=== PATIENT | male | born 1975 | race Caucasian/White ===

== ENCOUNTER 2018-06-04 18:11 | Inpatient (IN) ==
[2018-06-04 19:39] LABS: Baso % (Auto) 0.4 % (0.0-2.0); Eos # (Auto) 0.1 th/mm3 (0.0-0.4); Eos % (Auto) 1.1 % (0.0-4.0); Hematocrit 44.4 % (39.0-51.0); Hemoglobin 15.2 gm/dL (13.0-17.0); Lymph # (Auto) 0.1 th/mm3 (1.0-4.8); Lymph % (Auto) 1.1 % (9.0-44.0); Mean Corpuscular HGB Conc 34.3 % (32.0-36.0); Mean Corpuscular Hemoglobin 32.7 pg (27.0-34.0); Mean Corpuscular Volume 95.3 fL (80.0-100.0); Mean Platelet Volume 8.4 fL (7.0-11.0); Mono # (Auto) 0.6 th/mm3 (0.0-0.9); Mono % (Auto) 7.8 % (0.0-8.0); Neut # (Auto) 6.5 th/mm3 (1.8-7.7); Neut % (Auto) 89.6 % (16.0-70.0); Platelet Count 153 th/mm3 (150-450); Red Blood Count 4.65 mil/mm3 (4.50-5.90); Red Cell Distribution Width 13.3 % (11.6-17.2); White Blood Count 7.3 th/mm3 (4.0-11.0)
--- NOTE | 2018-06-04 19:42 | CT ---
EXAM DATE: 06/04/2018 7:30 PM EDT AGE/SEX: 43 years / Male INDICATIONS: Trauma, attempted hanging today. CLINICAL DATA: This is the patient's initial encounter. Patient reports that signs and symptoms have been present for 1 day and indicates a pain score of 7/10. MEDICAL/SURGICAL HISTORY: Multiple sclerosis. . brain biopsy RADIATION DOSE: 38.73 CTDI (mGy) COMPARISON: No prior exams available for comparison. TECHNIQUE: CT of the head without contrast. Using automated exposure control and adjustment of the mA and/or kV according to patient size, radiation dose was kept as low as reasonably achievable to ob tain optimal diagnostic quality images. DICOM format image data is available electronically for revi ew and comparison. FINDINGS: There is no evidence for intracranial hemorrhage, mass effect, mass lesions, edema, or extra-axial fl uid collections. The visualized bony structures appear intact. The ventricles are normal size for t he patient's age. There are no signs of acute infarction for technique. There is evidence for prior jerod hole in the right posterior parietal region with an area of almost 2 cm peritrigonal lucency pr obably old. CONCLUSION: Chronic changes right peritrigonal area and no acute hemorrhage. Electronically signed by: Jesu Stack MD 06/04/2018 7:41 PM EDT
--- NOTE | 2018-06-04 19:46 | CT ---
EXAM DATE: 06/04/2018 7:38 PM EDT AGE/SEX: 43 years / Male INDICATIONS: Trauma, attempted hanging today. CLINICAL DATA: This is the patient's initial encounter. Patient reports that signs and symptoms have been present for 1 day and indicates a pain score of 7/10. MEDICAL/SURGICAL HISTORY: Multiple sclerosis. None. RADIATION DOSE: 20.99 CTDI (mGy) COMPARISON: No prior exams available for comparison. TECHNIQUE: Contiguous axial images were obtained using helical multirow detector technique. The vol umetric data was post-processed with multiplanar reconstruction in oblique axial, sagittal, and coron al planes. Using automated exposure control and adjustment of the mA and/or kV according to patient s ize, radiation dose was kept as low as reasonably achievable to obtain optimal diagnostic quality neetu ges. DICOM format image data is available electronically for review and comparison. FINDINGS: No significant subluxation or soft tissue swelling is seen. No definite fracture is identified for t echnique. C2-C3: No appreciable compromise to the thecal sac, exiting nerve roots are seen. The neural foramin a are patent bilaterally. No appreciable thecal sac stenosis is seen. C3-C4: No appreciable compromise to the thecal sac, exiting nerve roots are seen. The neural foramin a are patent bilaterally. No appreciable thecal sac stenosis is seen. C4-C5: No appreciable compromise to the thecal sac, exiting nerve roots are seen. The neural foramin a are patent bilaterally. No appreciable thecal sac stenosis is seen. C5-C6: Moderate degenerative changes are present in the disc space and facets. There is slight neura l foramina compromise bilaterally due to bulging disc and hypertrophic changes. Slight osteophyte fo rmation bulging disc protrude posteriorly partially into the bilateral lateral recess without any sig nificant lateral recess stenosis. Slight bulging disc and hypertrophic changes are seen with indenta tion on the thecal sac and no significant compromise to the thecal sac . C6-C7: No appreciable compromise to the thecal sac, exiting nerve roots are seen. The neural forami na are patent bilaterally. No appreciable thecal sac stenosis is seen. C7-T1: No appreciable compromise to the thecal sac, exiting nerve roots are seen. The neural foramin a are patent bilaterally. No appreciable thecal sac stenosis is seen. CONCLUSION: Degenerative spondylosis and neural foraminal compromise bilateral C5-6. Electronically signed by: Jesu Stack MD 06/04/2018 7:44 PM EDT
[2018-06-04 19:49] LABS: Albumin 3.6 g/dL (3.4-5.0); Anion Gap 6 meq/L (5-15); Aspartate Aminotransferase 19 U/L (15-37); Blood Urea Nitrogen 8 mg/dL (7-18); Calcium 8.5 mg/dL (8.5-10.1); Carbon Dioxide 26.2 meq/L (21.0-32.0); Chloride 113 meq/L (98-107); Glomerular Filtration Rate 76 mL/min (>89); Glucose,Random 102 mg/dL (74-106); Potassium 3.8 meq/L (3.5-5.1); Sodium 145 meq/L (136-145)
[2018-06-04 19:50] LABS: Alanine Aminotransferase 28 U/L (12-78)
[2018-06-04 20:00] LABS: Alkaline Phosphatase 56 U/L (45-117); Thyroid Stimulating Hormone 0.739 uIU/mL (0.358-3.740)
--- NOTE | 2018-06-04 20:12 | CT ---
EXAM DATE: 06/04/2018 8:06 PM EDT AGE/SEX: 43 years / Male INDICATIONS: Trauma, attempted hanging today. CLINICAL DATA: This is the patient's initial encounter. Patient reports that signs and symptoms have been present for 1 day and indicates a pain score of 7/10. MEDICAL/SURGICAL HISTORY: Multiple sclerosis. None. RADIATION DOSE: 35.86 CTDI (mGy) ; Combined studies COMPARISON: No prior exams available for comparison. TECHNIQUE: Contiguous axial images were acquired using a multirow detector CT scanner without contra st. Multiplanar reconstruction in the sagittal and coronal planes was performed. Using automated exp osure control and adjustment of the mA and/or kV according to patient size, radiation dose was kept a s low as reasonably achievable to obtain optimal diagnostic quality images. DICOM format image data is available electronically for review and comparison. FINDINGS: No significant compression deformities are seen. There is a hemangioma is the lumbar vertebrae with m ultiple Schmorl nodes formation. T1-T2: No appreciable compromise to the thecal sac, spinal cord, or the exiting nerve roots are seen . The neural foramina are grossly patent bilaterally. T2-T3: No appreciable compromise to the thecal sac, spinal cord, or the exiting nerve roots are seen . The neural foramina are grossly patent bilaterally. T3-T4: No appreciable compromise to the thecal sac, spinal cord, or the exiting nerve roots are seen . The neural foramina are grossly patent bilaterally. T4-T5: No appreciable compromise to the thecal sac, spinal cord, or the exiting nerve roots are seen . The neural foramina are grossly patent bilaterally. T5-T6: No appreciable compromise to the thecal sac, spinal cord, or the exiting nerve roots are seen . The neural foramina are grossly patent bilaterally. T6-T7: No appreciable compromise to the thecal sac, spinal cord, or the exiting nerve roots are seen . The neural foramina are grossly patent bilaterally. T7-T8: No appreciable compromise to the thecal sac, spinal cord, or the exiting nerve roots are seen . The neural foramina are grossly patent bilaterally. T8-T9: No appreciable compromise to the thecal sac, spinal cord, or the exiting nerve roots are seen . The neural foramina are grossly patent bilaterally. T9-T10: No appreciable compromise to the thecal sac, spinal cord, or the exiting nerve roots are see n. The neural foramina are grossly patent bilaterally. T10-T11: No appreciable compromise to the thecal sac, spinal cord, or the exiting nerve roots are se en. The neural foramina are grossly patent bilaterally. T11-T12: No appreciable compromise to the thecal sac, spinal cord, or the exiting nerve roots are se en. The neural foramina are grossly patent bilaterally. T12-L1: No appreciable compromise to the thecal sac, spinal cord, or the exiting nerve roots are see n. The neural foramina are grossly patent bilaterally. CONCLUSION: Hemangioma of T7 vertebrae multiple Schmorl nodes formation and no acute fracture. Electronically signed by: Jesu Stack MD 06/04/2018 8:11 PM EDT
--- NOTE | 2018-06-04 20:16 | CT ---
EXAM DATE: 06/04/2018 8:07 PM EDT AGE/SEX: 43 years / Male INDICATIONS: Trauma, attempted hanging today. CLINICAL DATA: This is the patient's initial encounter. Patient reports that signs and symptoms have been present for 1 day and indicates a pain score of 7/10. MEDICAL/SURGICAL HISTORY: Multiple sclerosis. None. RADIATION DOSE: 35.86 CTDI (mGy) ; Combined studies COMPARISON: No prior exams available for comparison. TECHNIQUE: Contiguous axial images were acquired with a multirow detector CT scanner without contras t. Multiplanar reconstructions in the sagittal and coronal plane were also performed. Using automate d exposure control and adjustment of the mA and/or kV according to patient size, radiation dose was k ept as low as reasonably achievable to obtain optimal diagnostic quality images. DICOM format image data is available electronically for review and comparison. FINDINGS: No significant compression deformities, spondylolysis, or spondylolesthesis is seen. Multiple Schmorl nodes formation is seen. L1-L2: No appreciable compromise to the thecal sac, or the exiting nerve roots is seen. The neural foramina and lateral recesses are patent bilaterally. L2-L3: No appreciable compromise to the thecal sac, or the exiting nerve roots is seen. The neural foramina and lateral recesses are patent bilaterally. L3-L4: No appreciable compromise to the thecal sac, or the exiting nerve roots is seen. The neural foramina and lateral recesses are patent bilaterally. L4-L5: Slight bulging disc and hypertrophic changes are seen with indentation on the thecal sac and no significant compromise to the thecal sac or the exiting nerve roots. L5-S1: Slight degenerative changes are present in the disc space and facets. There is slight neura l foramina compromise bilaterally due to bulging disc and hypertrophic changes. Slight bulging disc and hypertrophic changes are seen with indentation on the thecal sac and no significant compromise to the thecal sac. CONCLUSION: Slight neural foraminal compromise bilateral L5-S1. Electronically signed by: Jesu Stack MD 06/04/2018 8:14 PM EDT
--- NOTE | 2018-06-04 20:30 | CT ---
EXAM DATE: 06/04/2018 8:25 PM EDT AGE/SEX: 43 years / Male INDICATIONS: Trauma, attempted hanging today. CLINICAL DATA: This is the patient's initial encounter. Patient reports that signs and symptoms have been present for 1 day and indicates a pain score of 7/10. MEDICAL/SURGICAL HISTORY: Multiple sclerosis. . brain biopsy RADIATION DOSE: 28.84 CTDI (mGy) ; Combined studies COMPARISON: No prior exams available for comparison. TECHNIQUE: Volumetric scanning was performed using a multi-row detector CT scanner during bolus infu kenji of 74 ml Omnipaque 350 (iohexol) nonionic water-soluble contrast as a cumulative dose for multi ple exams. The data was post processed with a variety of visualization algorithms including full vo lume maximum intensity projection, multi-planar sliding thin slab reformation, curved planar reformat ion, and surface rendering techniques. Using automated exposure control and adjustment of the mA and /or kV according to patient size, radiation dose was kept as low as reasonably achievable to obtain o ptimal diagnostic quality images. DICOM format image data is available electronically for review and comparison. FINDINGS: There is excellent visualization of the major intracranial arteries out to the second-order branch ve ssels. There is no evidence for aneurysm, vessel truncation or stenosis, and no evidence for vascula r malformation. CONCLUSION: 1. Negative CTA Head. Electronically signed by: Jesu Stack MD 06/04/2018 8:28 PM EDT
--- NOTE | 2018-06-04 20:32 | CT ---
EXAM DATE: 06/04/2018 8:26 PM EDT AGE/SEX: 43 years / Male INDICATIONS: Trauma, attempted hanging today. CLINICAL DATA: This is the patient's initial encounter. Patient reports that signs and symptoms have been present for 1 day and indicates a pain score of 7/10. MEDICAL/SURGICAL HISTORY: Multiple sclerosis. . brain biopsy RADIATION DOSE: 35.86 CTDI (mGy) COMPARISON: No prior exams available for comparison. TECHNIQUE: Volumetric scanning was performed using a multirow detector CT scanner during bolus infus ion of 74 ml Omnipaque 350 (iohexol) nonionic water-soluble contrast as a cumulative dose for multip le exams. The data was postprocessed with a variety of visualization algorithms including full-volu me maximum intensity projection, multiplanar sliding thin-slab reformation, curved-planar reformation , and surface-rendering techniques. Using automated exposure control and adjustment of the mA and/or kV according to patient size, radiation dose was kept as low as reasonably achievable to obtain opti mal diagnostic quality images. DICOM format image data is available electronically for review and co mparison. Percent stenosis is calculated using the diameter of the stenotic region over the diameter of the nor mal distal internal carotid artery. FINDINGS: The takeoff of the major vessels from the arch appear intact. The vertebral basilar system appear int act. The internal carotid artery bifurcation is completely normal. CONCLUSION: 1. Unremarkable study. Electronically signed by: Jesu Stack MD 06/04/2018 8:30 PM EDT
--- NOTE | 2018-06-04 20:53 | ED ---
HPI General Chief Complaint: Psychiatric Symptoms Stated Complaint: Dwayne Chen Time Seen by Provider: 06/04/18 18:29 Source: patient Limitations: no limitations History of Present Illness HPI narrative: Patient is a 43-year-old male, past medical history significant for depression, who presents with complaint of suicide attempt. He arrived under Akhtar act. He had gotten into an argument earlier today and then proceeded to try and hang himself. He did lose consciousness. He states that he was only hanging for less than 2 minutes before his girlfriend got him down. He denies numbness or weakness. Denies change in voice or difficulty swallowing. complaint: injury Onset (ago): minute(s) Loss of Consciousness: yes Location: neck Severity: moderate Context: other Associated symptoms: denies other symptoms Related Data Allergies Allergy/AdvReac Type Severity Reaction Status Date / Time No Known Allergies Allergy Severe Uncoded 06/02/09 00:39 Review of Systems ROS: all other systems reviewed are negative [facility] Medical History Medical History Depression (Acute) Multiple sclerosis (Acute) Surgical History Surgical History H/O hand surgery (Acute) History of arthroscopic procedure on shoulder (Acute) Social History Social History Substance History: Active Abuse Smoking Status: Heavy tobacco smoker Tobacco Type: Cigarettes How Often Do You Have a Drink Containing Alcohol: Monthly or less Recent Travel in [facility] within the Last 8 Weeks: No Recent Out of Country Travel within the Last 8 Weeks: No Substance Abuse Detail Crack/Cocaine: Substance Use Type Other:: today Substance Use Status: Active Immunization History Tetanus Immunization: <5 Years Hx Influenza Vaccine This Season: No Exam Narrative Exam Narrative: GENERAL: Well-appearing male in no acute distress SKIN: Focused skin assessment warm/dry. Ligature hearn to neck. HEAD: Atraumatic. Normocephalic. EYES: Pupils equal and round. No scleral icterus. No injection or drainage. ENT: No nasal bleeding or discharge. Mucous membranes pink and moist. NECK: Trachea midline. No JVD. CARDIOVASCULAR: Regular rate and rhythm. No murmur appreciated. Intact and equal peripheral pulses. RESPIRATORY: No accessory muscle use. Clear to auscultation. Breath sounds equal bilaterally. GASTROINTESTINAL: Abdomen soft, non-tender, nondistended. Hepatic and splenic margins not palpable. MUSCULOSKELETAL: No obvious deformities. No clubbing. No cyanosis. No edema. Slight tenderness to palpation of the thoracolumbar spine. NEUROLOGICAL: Awake and alert. No obvious cranial nerve deficits. Motor within normal limits. Normal sensation. Normal speech. PSYCHIATRIC: Appropriate mood and affect; insight and judgment normal. Course Initial Documented Vital Signs Temperature 98.0 F 06/04/18 18:21 Pulse Rate 78 06/04/18 18:21 Respiratory Rate 13 06/04/18 18:21 Blood Pressure 136/65 06/04/18 18:21 Pulse Oximetry 98 06/04/18 18:21 Last Documented Vital Signs Temperature 98.0 F 06/04/18 18:21 Pulse Rate 72 06/04/18 19:17 Respiratory Rate 18 06/04/18 19:17 Blood Pressure 131/68 06/04/18 19:17 Pulse Oximetry 98 06/04/18 19:17 Medical Decision Making [facility] Narrative Medical decision making narrative: Patient is a 43-year-old male who presents under Akhtar act after he hung himself today. He does have ligature hearn to his neck. He is neurologically intact. Labs unremarkable. CTs including CTA is unremarkable. I discussed the case with Dr. Mishra, trauma surgeon multi operation machine operator, who agreed with my plan for patient's disposition. The patient has been medically cleared to be seen by psychiatry. Medical Screen Exam Complete: Yes Emergency Medical Condition: Yes Differential Diagnosis Differential Diagnosis: Differential diagnosis includes but is not limited to fracture, dissection, tracheal injury. Medical Records Medical records reviewed: Yes I reviewed the patient's medical records. Lab Data Lab results reviewed: Yes I reviewed the patient's lab results. Result diagrams: 06/04/18 19:14 06/04/18 19:14 Lab Results 06/04/18 06/04/18 06/04/18 Range/Units 19:14 19:14 19:14 WBC 7.3 (4.0-11.0) th/mm3 RBC 4.65 (4.50-5.90) mil/mm3 Hgb 15.2 (13.0-17.0) gm/dL Hct 44.4 (39.0-51.0) % MCV 95.3 (80.0-100.0) fL MCH 32.7 (27.0-34.0) pg MCHC 34.3 (32.0-36.0) % RDW 13.3 (11.6-17.2) % Plt Count 153 (150-450) th/mm3 MPV 8.4 (7.0-11.0) fL Neut % (Auto) 89.6 H (16.0-70.0) % Lymph % (Auto) 1.1 L (9.0-44.0) % [place] % (Auto) 7.8 (0.0-8.0) % Eos % (Auto) 1.1 (0.0-4.0) % Baso % (Auto) 0.4 (0.0-2.0) % Neut # (Auto) 6.5 (1.8-7.7) th/mm3 Lymph # (Auto) 0.1 L (1.0-4.8) th/mm3 [place] # (Auto) 0.6 (0.0-0.9) th/mm3 Eos # (Auto) 0.1 (0.0-0.4) th/mm3 Baso # (Auto) 0.0 (0.0-0.2) th/mm3 WBC Differential . Differential Comment Auto diff final Sodium 145 (136-145) meq/L Potassium 3.8 (3.5-5.1) meq/L Chloride 113 H (98-107) meq/L Carbon Dioxide 26.2 (21.0-32.0) meq/L Anion Gap 6 (5-15) meq/L BUN 8 (7-18) mg/dL Creatinine 1.05 (0.60-1.30) mg/dL Estimated GFR 76 L (>89) mL/min Random Glucose 102 (74-106) mg/dL Calcium 8.5 (8.5-10.1) mg/dL Total Bilirubin 0.6 (0.2-1.0) mg/dL AST 19 (15-37) U/L ALT 28 (12-78) U/L Alkaline Phosphatase 56 (45-117) U/L Total Protein 7.0 (6.4-8.2) g/dL Albumin 3.6 (3.4-5.0) g/dL TSH 0.739 (0.358-3.740) uIU/mL Serum Alcohol Less than 3 (0-5) mg/dL Blood Type O Positive Antibody Screen Negative Imaging Data Attestation: I personally reviewed and interpreted this imaging study as follows : My impression: No acute intracranial hemorrhage. Radiologist's impression: Cervical Spine CT 06/04/18 18:46 CONCLUSION: Degenerative spondylosis and neural foraminal compromise bilateral C5-6. Head CT 06/04/18 18:46 CONCLUSION: Chronic changes right peritrigonal area and no acute hemorrhage. Head CTA 06/04/18 18:46 CONCLUSION: 1. Negative CTA Head. Lumbar Spine CT 06/04/18 18:46 CONCLUSION: Slight neural foraminal compromise bilateral L5-S1. Neck CTA 06/04/18 18:46 CONCLUSION: 1. Unremarkable study. Thoracic Spine CT 06/04/18 18:46 CONCLUSION: Hemangioma of T7 vertebrae multiple Schmorl nodes formation and no acute fracture. Discharge Plan Discharge Disposition Patient Disposition: 30 Still Patient Discharge Condition Condition: Serious Discharge Details Diagnosis: Suicide attempt by hanging Physicians Team ED Provider: Tanesha Akhtar Primary Care Provider: iJ Lyles Discharge Interventions Interventions: Vital Signs Last Done: 06/04/18 19:17 Status ED Status: With Doctor
[2018-06-04 22:43] LABS: Amphetamine Screen,Urine Neg (Neg); Barbiturate Screen,Urine Neg (Neg); Cannabinoid Screen,Urine Neg (Neg); Cocaine Screen,Urine Pos (Neg)
[2018-06-04 22:44] LABS: Opiate Screen,Urine Neg (Neg)
[2018-06-05 04:15] VITALS: RESP 18
[2018-06-05] MEDS ORDERED: Aluminum/Magnesium/Simethacone Susp 30 ML UDC PO PRN (10:25)
[2018-06-05] MEDS ORDERED: FINGOLIMOD 0.5 MG PO SCH (10:30)
--- NOTE | 2018-06-05 14:11 | ED ---
HPI - Psych - General Source: patient Mode of arrival: ambulatory Limitations: no limitations - History of Present Illness complaint: other (Anxious an attempted suicide) Onset (ago): unknown Duration: constant History of same: Yes Context: recent drug abuse, significant life stressor Associated symptoms: insomnia If self harm: has acted on plan - General Chief Complaint: Psychiatric Symptoms Stated Complaint: Dwayne Chen Time Seen by Provider: 06/05/18 10:12 - History of Present Illness HPI Narrative: This is a 43-year-old single, male who presents to this facility under a Akhtar act for attempting to hang himself after an argument with his girlfriend. He is not previously known to this psychiatric department. Reviewed electronic medical records, labs, discuss case with staff. Patient's toxicology screen is positive for cocaine. He is evaluated and [id number]. He is found lying on the bed awake, alert, and oriented 4. His speech is clear, logical, organized, rapid, somewhat pressured, and normal volume. This time he denies feeling suicidal, homicidal, or experiencing auditory or visual hallucinations. He does not appear to be internally stimulated nor is there any indication of thought blocking. Does not appear to be psychotic but there may be some hypo-gretchen present. His mood and affect are congruently anxious. When asked why he attempted to hang himself the patient responds "I was just tired of everything". He reports he is previously attempted hanging himself " in the barn when I was like 10". He denies any previous inpatient or outpatient treatments. He states that he smokes 2 packs of cigarettes per day and drinks alcohol socially. He reports that he only took for cocaine to help him stay up for his work. 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 He additionally reports that he has not slept in 4 days. He does have a history of being incarcerated and states that he "just got out". Reports that he lives with his girlfriend and "body". He graduated from high school and attended a trade school. Self reports a history of multiple sclerosis for which he is medicated. He denies owning firearms stating that he "turn them all over to friends". He does have ligature hearn to his neck and a raspy voice. He complains of pain when swallowing. (Danelle Bob) - Related Data Home Medications Medication Instructions Recorded Confirmed fingolimod [Gilenya] 0.5 mg PO DAILY 06/04/18 06/04/18 Allergies Allergy/AdvReac Type Severity Reaction Status Date / Time No Known Allergies Allergy Severe Uncoded 06/02/09 00:39 PMF - History History Provided By: Patient - Medical History Medical History: Medical History (Last Reviewed 06/05/18 @ 13:41 by MARTA Carlisle) Depression Multiple sclerosis - Surgical History Surgical History: Surgical History (Last Reviewed 06/05/18 @ 13:41 by MARTA Carlisle) H/O hand surgery History of arthroscopic procedure on shoulder - Tobacco History Tobacco Use In Past 30 Days: Yes Smoking Status: Heavy tobacco smoker Tobacco Type: Cigarettes - Alcohol History How Often Do You Have a Drink Containing Alcohol: Monthly or less - Substance Use History Substance History: Active Abuse - Substance Use Type Crack/Cocaine Type: today Status: Active Route Used: Inhalation Comment: DRUG SCREEN POSITIVE FOR COCAINE - Travel History Recent Travel in the [facility] Within the Last 8 Weeks: No Recent Travel Out of the Country Within the Last 8 Weeks: No - Immunization History Tetanus Immunization: <5 Years Hx Influenza Vaccine This Season: No Psychiatric History - Psychiatric History Psychiatric Treatment History: Denies Previous Treatment - Psychiatric History Denies treatment but reports 1 previous suicide attempt by hanging at the age of 10. (Danelle Bob) - Legal History Was recently incarcerated (Danelle Bob) - Family Psychiatric History Denies any familial suicide attempts or mental health diagnoses. (Danelle Bob) Physical Exam - General Limitations: no limitations General appearance: alert - Head Head exam: atraumatic - Neck Neck exam: Present: other (Ligature nacho noted to neck) - Neurological Exam Neurological exam: Present: alert, oriented X3 - Psychiatric Psychiatric exam: Present: depressed, anxious Mental Status Examination Appearance: Disheveled Consciousness: Alert Orientation: x4 Motor Activity: Normal gait Speech: Pressured, Rapid Language: Adequate Fund of Knowledge: Inadequate Attention and Concentration: Adequate Memory: Unremarkable Mood: Anxious Affect: Anxious Thought Process & Associations: Intact Thought Content: Appropriate Hallucination Type: None Delusion Type: None Suicidal Ideation: No Suicidal Plan: No Suicidal Intention: No Homicidal Ideation: No Homicidal Plan: No Homicidal Intention: No Insight: Fair Judgment: Impulsive Initial Documented Vital Signs Temperature 98.0 F 06/04/18 18:21 Pulse Rate 78 06/04/18 18:21 Respiratory Rate 13 06/04/18 18:21 Blood Pressure 136/65 06/04/18 18:21 Pulse Oximetry 98 06/04/18 18:21 Last Documented Vital Signs Temperature 98.2 F 06/05/18 04:14 Pulse Rate 67 06/05/18 04:14 Respiratory Rate 18 06/05/18 04:14 Blood Pressure 119/72 06/05/18 04:14 Pulse Oximetry 98 06/05/18 04:14 MDM - Psych - Diagnosis (1) Depression Status: Acute - Lab Data Result diagrams: 06/04/18 19:14 06/04/18 19:14 - MDM Narrative Medical decision making narrative: Given the severity of the patient's action and his reported lack of sleep for four nights, he will be admitted to a locked inpatient unit for further evaluation and treatment as deemed necessary. He will be admitted under the Akhtar Act. (Danelle Bob) - Lab Data Lab Results 06/04/18 06/04/18 06/04/18 Range/Units 19:14 19:14 19:14 WBC 7.3 (4.0-11.0) th/mm3 RBC 4.65 (4.50-5.90) mil/mm3 Hgb 15.2 (13.0-17.0) gm/dL Hct 44.4 (39.0-51.0) % MCV 95.3 (80.0-100.0) fL MCH 32.7 (27.0-34.0) pg MCHC 34.3 (32.0-36.0) % RDW 13.3 (11.6-17.2) % Plt Count 153 (150-450) th/mm3 MPV 8.4 (7.0-11.0) fL Neut % (Auto) 89.6 H (16.0-70.0) % Lymph % (Auto) 1.1 L (9.0-44.0) % Castro % (Auto) 7.8 (0.0-8.0) % Eos % (Auto) 1.1 (0.0-4.0) % Baso % (Auto) 0.4 (0.0-2.0) % Neut # (Auto) 6.5 (1.8-7.7) th/mm3 Lymph # (Auto) 0.1 L (1.0-4.8) th/mm3 Castro # (Auto) 0.6 (0.0-0.9) th/mm3 Eos # (Auto) 0.1 (0.0-0.4) th/mm3 Baso # (Auto) 0.0 (0.0-0.2) th/mm3 WBC Differential . Differential Comment Auto diff final Sodium 145 (136-145) meq/L Potassium 3.8 (3.5-5.1) meq/L Chloride 113 H (98-107) meq/L Carbon Dioxide 26.2 (21.0-32.0) meq/L Anion Gap 6 (5-15) meq/L BUN 8 (7-18) mg/dL Creatinine 1.05 (0.60-1.30) mg/dL Estimated GFR 76 L (>89) mL/min Random Glucose 102 (74-106) mg/dL Calcium 8.5 (8.5-10.1) mg/dL Total Bilirubin 0.6 (0.2-1.0) mg/dL AST 19 (15-37) U/L ALT 28 (12-78) U/L Alkaline Phosphatase 56 (45-117) U/L Total Protein 7.0 (6.4-8.2) g/dL Albumin 3.6 (3.4-5.0) g/dL TSH 0.739 (0.358-3.740) uIU/mL Urine Opiates Screen (Neg) Ur Barbiturates Screen (Neg) Ur Amphetamines Screen (Neg) U Benzodiazepines Scrn (Neg) Urine Cocaine Screen (Neg) U Cannabinoids Screen (Neg) Serum Alcohol Less than 3 (0-5) mg/dL Blood Type O Positive Antibody Screen Negative 06/04/18 Range/Units 22:15 WBC (4.0-11.0) th/mm3 RBC (4.50-5.90) mil/mm3 Hgb (13.0-17.0) gm/dL Hct (39.0-51.0) % MCV (80.0-100.0) fL MCH (27.0-34.0) pg MCHC (32.0-36.0) % RDW (11.6-17.2) % Plt Count (150-450) th/mm3 MPV (7.0-11.0) fL Neut % (Auto) (16.0-70.0) % Lymph % (Auto) (9.0-44.0) % Castro % (Auto) (0.0-8.0) % Eos % (Auto) (0.0-4.0) % Baso % (Auto) (0.0-2.0) % Neut # (Auto) (1.8-7.7) th/mm3 Lymph # (Auto) (1.0-4.8) th/mm3 Castro # (Auto) (0.0-0.9) th/mm3 Eos # (Auto) (0.0-0.4) th/mm3 Baso # (Auto) (0.0-0.2) th/mm3 WBC Differential Differential Comment Sodium (136-145) meq/L Potassium (3.5-5.1) meq/L Chloride (98-107) meq/L Carbon Dioxide (21.0-32.0) meq/L Anion Gap (5-15) meq/L BUN (7-18) mg/dL Creatinine (0.60-1.30) mg/dL Estimated GFR (>89) mL/min Random Glucose (74-106) mg/dL Calcium (8.5-10.1) mg/dL Total Bilirubin (0.2-1.0) mg/dL AST (15-37) U/L ALT (12-78) U/L Alkaline Phosphatase (45-117) U/L Total Protein (6.4-8.2) g/dL Albumin (3.4-5.0) g/dL TSH (0.358-3.740) uIU/mL Urine Opiates Screen Neg (Neg) Ur Barbiturates Screen Neg (Neg) Ur Amphetamines Screen Neg (Neg) U Benzodiazepines Scrn Neg (Neg) Urine Cocaine Screen Pos H (Neg) U Cannabinoids Screen Neg (Neg) Serum Alcohol (0-5) mg/dL Blood Type Antibody Screen
[2018-06-05] MEDS: Ibuprofen 600 MG Tablet PO SCH ×2 (16:01→22:57)
[2018-06-05] MEDS: Senna/Docusate Sodium 8.6/50 MG Tablet PO SCH (21:57)
[2018-06-06 06:31] VITALS: BP 150/79; PULSE 72; TEMP 97.8
[2018-06-06 07:47] LABS: Calcium 8.6 mg/dL (8.5-10.1); Carbon Dioxide 29.3 meq/L (21.0-32.0)
[2018-06-06 07:58] LABS: Chol/HDL Ratio 5.07 Ratio; HDL Cholesterol 32.5 mg/dL (40.0-60.0)
[2018-06-06 10:04] VITALS: O2SAT 97
[2018-06-06] MEDS: Ibuprofen 600 MG Tablet PO SCH (10:38)
[2018-06-06] MEDS: Senna/Docusate Sodium 8.6/50 MG Tablet PO SCH (10:40)
--- NOTE | 2018-06-06 13:09 | P.HPPSY ---
Provisional Diagnosis Admission Date: June 05, 2018 10:25 [place].: Adjustment disorder with mixed disturbances of emotion and conduct, cocaine abuse Competence Certification of Person's Competence To Provide Express and Informed Consent I have personally examined Humberto Maria, a person being served at [facility] on, June 06, 2018 1257. Express and informed consent means consent voluntarily given in writing, by a competent person, after sufficient explanation and disclosure of the subject matter involved to enable the person to make a knowing and willful decision without any element of force, fraud, deceit, duress, or other form of constraint or coercion. This person is 18 years of age or older, is not now known to be incompetent to consent to treatment with a guardian advocate, and does not have a health care surrogate or proxy currently making medical treatment decisions. I have found this person to be one of the following: [] Competent to provide express and informed consent, as defined above, for voluntary admission to this facility and is competent to provide express and informed consent for treatment. He/she has the consistent capacity to make well reasoned, willful, and knowing decisions concerning his or her medical or mental health treatment. The person fully and consistently understands the purpose of the admission for examination/placement and is fully capable of personally exercising all rights assured under [place] [] Incompetent to provide express and informed consent to voluntary admission, and this is incompetent to provide express and informed consent to treatment. The person must be transferred to involuntary status and a petition for a guardian advocate filed with the Circuit Court. [] Refusing to provide express and informed consent to voluntary admission but is competent to provide express and informed consent for treatment. The person must be discharged or transferred to involuntary status. Form shall be completed within 24 hours of a person's arrival at the receiving facility and filed in the clinical record of each person: 1. Admitted on a voluntary basis 2. Permitted to provide express and informed consent to his/her own treatment 3. Allowed to transfer from involuntary to voluntary status 4. Prior to permitting a person to consent to his or her own treatment after having been previously found incompetent to consent to treatment. History of Present Illness Capacity: Has capacity History of Present Illness: Patient is a 43-year-old white male initially admitted to the medical side after suicide attempt by hanging himself. He was Akhtar acted by the [place] [employer] on 06/04/2018 at 1750 hrs. that document reviewed states hung himself after an argument with his girlfriend due to believing that she was responsible for him being locked out of the house patient was seen screen in the ED urine toxicology positive for cocaine, patient medically cleared and transferred to this unit. Patient seen today in his room with nurse Floyd. 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 In coping with his diagnosis of multiple sclerosis. He acknowledges being an occasional user of cocaine. He also has the stress of the divorce from his first and the fact that his 20-year-old son is an legal issues not related to his use of cocaine. Patient states she was doing this cocaine recreationally but acknowledges that after there is a small artery becomes angry and irritable this led to this impulsive gesture of killing himself. He states he did not have a long process of thinking about suicide. Patient denies any prior suicidal ideation intent or attempts. Patient states that on the mental health contact she is having his and his parents are a number of years ago. He denies any prior psychiatric hospitalizations or psychotropic medications. Denies other drug use except for the cocaine. Denies any physical or sexual abuse. He says he is adopted is vague with any family history of mental illness. Those son does have the addictive paste 1. In any event at this time patient denies suicidal ideation or homicidal ideation. Is able contract to do no harm. He is alert oriented calm and quite cooperative with me. Thus at the stomach feel patient longer meets Akhtar criteria thus I will lift the Akhtar act allow the patient to be discharged from self, no Rx by me. Of interest patient's girlfriend does see counselors through [facility] and he has participated in that I would recommend that at the next counseling session me as a therapist referral for himself or individual therapy. Of course referral to NA and absolute sobriety - Inpatient Certification I certify that the inpatient services were ordered in accordance with Medicare regulations governing the order. This includes certification that hospital inpatient services are reasonable and necessary and in the case of services not specified as inpatient-only under 42 CFR 419.22(n), that they are appropriately provided as inpatient services in accordance to with the 2-midnight benchmark under 43 CFR 412.3(e) I certify that inpatient psychiatric hospital services are medically necessary. Evaluation and treatment and/or diagnostic testing are expected to improve the patient's condition. The patient needs on a daily basis, active treatment furnished directly by or requiring the supervision of inpatient psychiatric facility personnel. Estimated Total Length of Stay (Days): 1 Plans for Post Hospital Care: Home Review of Systems All other systems reviewed negative except as stated in HPI PMFSH - History History Provided By: Patient - Medical History Medical History: Medical History (Last Reviewed 06/05/18 @ 13:41 by MARTA Carlisle) Depression Multiple sclerosis - Surgical History Surgical History: Surgical History (Last Reviewed 06/05/18 @ 13:41 by MARTA Carlisle) H/O hand surgery History of arthroscopic procedure on shoulder - Tobacco History Second Hand Smoke Exposure: Yes Tobacco Use In Past 30 Days: Yes Smoking Status: Current some day smoker Tobacco Type: Cigarettes - Alcohol History How Often Do You Have a Drink Containing Alcohol: Monthly or less - Substance Use History Substance History: No History of Abuse - Substance Use Type Crack/Cocaine Type: today Status: Active Route Used: Inhalation Reason for Use: Stay Awake Comment: Patient reports he uses cocaine 3 times per year, patient denies any history of outpatient or residential treatment for alcohol or substance abuse. Patient may be in denial of the frequency of his cocaine use as evidenced by conflicting reports throughout assessment. - Travel History Recent Travel in the [place] Within the Last 8 Weeks: No Recent Travel Out of the Country Within the Last 8 Weeks: No - Immunization History Tetanus Immunization: <5 Years Hx Influenza Vaccine This Season: No Quality Measures - Psychiatric History Psychological trauma history: Patient denies any prior physical or sexual abuse Violence risk to others in the last 6 months: Low Violence risk to self in the last 6 months: Low to moderate - Substance Abuse History Drug or alcohol use in the past 12 months: Patient frequent cocaine user - Patient Strengths Patient's strengths (minimum of 2): Patient verbal able access healthcare calm and cooperative Medications and Allergies Active Medications: Active Medications Al Hydrox/Mg Hydrox/Simethicone (Mag-Al Plus Susp Liq) 30 ml PO Q6H PRN PRN Reason: DYSPEPSIA Diphenhydramine HCl (Benadryl) 50 mg PO HS PRN PRN Reason: INSOMNIA Hydroxyzine HCl (Atarax) 50 mg PO Q6H PRN PRN Reason: ANXIETY Ibuprofen (Motrin) 600 mg PO Q8HR [facility] Last Admin: 06/06/18 10:38 Dose: 600 mg Nicotine (Habitrol 21 Mg Patch.24 Hr) 1 patch T-DERMAL DAILY [facility] Last Admin: 06/06/18 10:24 Dose: 1 patch (Fingolimod [Gilenya (] 0.5 Mg) Capsule) 1 each PO DAILY [facility] Last Admin: 06/06/18 10:37 Dose: Not Given Senna/Docusate Sodium (Yadira-Colace) 1 tab PO BID [facility] Last Admin: 06/06/18 10:40 Dose: Not Given Sodium Chloride (Ns Flush) 2 ml IV.FLUSH PRN PRN PRN Reason: FLUSH AFTER USING IV ACCESS Allergies Allergy/AdvReac Type Severity Reaction Status Date / Time No Known Allergies Allergy Severe Uncoded 06/02/09 00:39 Home Medications Medication Instructions Recorded Confirmed Type fingolimod [Gilenya] 0.5 mg PO DAILY 06/04/18 06/04/18 History Results - Labs CBC & Chem 7: 06/04/18 19:14 06/06/18 07:10 Labs: Laboratory Results - last 24 hr 06/06/18 06/06/18 07:10 07:10 Sodium 141 Potassium 4.0 Chloride 106 Carbon Dioxide 29.3 Anion Gap 6 BUN 9 Creatinine 0.95 Estimated GFR 86 L Random Glucose 93 Hemoglobin A1c 5.0 Calcium 8.6 Triglycerides 121 Cholesterol 165 LDL Cholesterol, Calc 108 H HDL Cholesterol 32.5 L Cholesterol/HDL Ratio 5.07 Exam Vital signs: Vital Signs 06/05/18 16:34 06/06/18 06:31 06/06/18 10:04 Temperature 97.8 F Pulse Rate 72 Respiratory Rate 18 Blood Pressure 150/79 H Pulse Oximetry 98 99 97 Narrative: Patient sitting quietly in his room he is in no acute distress, is in no respiratory distress, no complaints of chest pain or abdominal pain, patient moving all 4 extremities without difficulty Mental Status Examination Appearance: Appropriate Consciousness: Alert Orientation: x4 Motor Activity: Normal gait Speech: Unremarkable Language: Adequate Fund of Knowledge: Adequate Attention and Concentration: Adequate Memory: Unremarkable Mood: Other (Euthymic mildly dysphoric) Affect: Other (Good range and intensity) Thought Process & Associations: Intact Thought Content: Appropriate Hallucination Type: None Delusion Type: None Suicidal Ideation: No Suicidal Plan: No Suicidal Intention: No Homicidal Ideation: No Homicidal Plan: No Homicidal Intention: No Insight: Adequate Judgment: Adequate Assessment and Plan - Assessment (1) Adjustment disorder with mixed disturbance of emotions and conduct Code(s): F43.25 - Adjustment disorder with mixed disturbance of emotions and conduct Status: Acute - Plan Plan: Estimated LOS: [] days At this time patient no longer meets Akhtar criteria lift Akhtar act. Patient is able contract to do no harm, denies suicidality homicidality voice or visions. Patient to be discharged today to himself, no Rx by me, refer to [facility] for individual counseling Justification for Continued Inpatient Stay: Patient to be discharged today Discharge Planning: Patient to be discharged today to his home Request Healthcare Surrogate/Guardian Advocate?: No
--- NOTE | 2018-06-06 13:13 | P.DSPSY ---
Psychiatry Discharge Summary Inpatient Psychiatric care?: Yes Advance Directives: No Mental Health Advance Directive: No Health Care Proxy: No - Admission Admission Date: June 05, 2018 10:25 - Admission Diagnosis (1) Adjustment disorder with mixed disturbance of emotions and conduct Code(s): F43.25 - Adjustment disorder with mixed disturbance of emotions and conduct Brief History: Patient is a 43-year-old white male initially admitted to the medical side after suicide attempt by hanging himself. He was [place] acted by the [place] [employer] on 06/04/2018 at 1750 hrs. that document reviewed states hung himself after an argument with his girlfriend due to believing that she was responsible for him being locked out of the house patient was seen screen in the ED urine toxicology positive for cocaine, patient medically cleared and transferred to this unit. Patient seen today in his room with nurse Floyd. He is alert oriented calm and cooperative with me stating he has been under multiple stressors the past month or so related to his work as a builder of [employer] with stress with finances and living situation coping with his girlfriend who he has substance abuse issues. In coping with his diagnosis of multiple sclerosis. He acknowledges being an occasional user of cocaine. He also has the stress of the divorce from his first and the fact that his 20-year-old son is an legal issues not related to his use of cocaine. Patient states she was doing this cocaine recreationally but acknowledges that after there is a small artery becomes angry and irritable this led to this impulsive gesture of killing himself. He states he did not have a long process of thinking about suicide. Patient denies any prior suicidal ideation intent or attempts. Patient states that on the mental health contact she is having his and his parents are a number of years ago. He denies any prior psychiatric hospitalizations or psychotropic medications. Denies other drug use except for the cocaine. Denies any physical or sexual abuse. He says he is adopted is vague with any family history of mental illness. Those son does have the addictive paste 1. In any event at this time patient denies suicidal ideation or homicidal ideation. Is able contract to do no harm. He is alert oriented calm and quite cooperative with me. Thus at the stomach feel patient longer meets Akhtar criteria thus I will lift the Akhtar act allow the patient to be discharged from self, no Rx by me. Of interest patient's girlfriend does see counselors through [facility] [employer] and he has participated in that I would recommend that at the next counseling session me as a therapist referral for himself or individual therapy. Of course referral to NA and absolute sobriety Tobacco Use In Past 30 Days: Yes How Often Do You Have a Drink Containing Alcohol: Monthly or less Hospital Course: Please see dictation under brief history. Patient still contract to do no harm denies suicidality homicidality voice or visions. Recommend absolute abstinence. Recommend follow through [facility] for individual counseling, - Discharge Discharge Date: 06/06/18 - Discharge Diagnosis (1) Adjustment disorder with mixed disturbance of emotions and conduct Diagnosis: Principal Code(s): F43.25 - Adjustment disorder with mixed disturbance of emotions and conduct Status: Acute Discharge Disposition: Home - Discharge Instructions Discharge Diet: Regular Diet Activities You Can Perform: Regular- No Restrictions - Discharge Time > 30 minutes Mental Status Examination Appearance: Appropriate Consciousness: Alert Orientation: x4 Motor Activity: Normal gait Speech: Unremarkable Language: Adequate Fund of Knowledge: Adequate Attention and Concentration: Adequate Memory: Unremarkable Mood: Other (Euthymic mildly dysphoric) Affect: Other (Good range and intensity) Thought Process & Associations: Intact Thought Content: Appropriate Hallucination Type: None Delusion Type: None Suicidal Ideation: No Suicidal Plan: No Suicidal Intention: No Homicidal Ideation: No Homicidal Plan: No Homicidal Intention: No Insight: Adequate Judgment: Adequate Discharge/Advance Care Plan - Results Vital Signs: Last Vital Signs Temp 97.8 F 06/06/18 06:31 Pulse 72 06/06/18 06:31 Resp 18 06/06/18 06:31 BP 150/79 H 06/06/18 06:31 Pulse Ox 97 06/06/18 10:04 Lab Results: Abnormal Lab Results 06/06/18 06/06/18 07:10 07:10 Sodium 141 Potassium 4.0 Chloride 106 Carbon Dioxide 29.3 Anion Gap 6 BUN 9 Creatinine 0.95 Estimated GFR 86 L Random Glucose 93 Hemoglobin A1c 5.0 Calcium 8.6 Triglycerides 121 Cholesterol 165 LDL Cholesterol, Calc 108 H HDL Cholesterol 32.5 L Cholesterol/HDL Ratio 5.07 Laboratory Results Hemoglobin A1c 5.0 % (4.3-6.0) 06/06/18 07:10 Triglycerides 121 mg/dL (42-150) 06/06/18 07:10 Cholesterol 165 mg/dL (120-200) 06/06/18 07:10 LDL Cholesterol, Calc 108 mg/dL (0-99) H 06/06/18 07:10 HDL Cholesterol 32.5 mg/dL (40.0-60.0) L 06/06/18 07:10 TSH 0.739 uIU/mL (0.358-3.740) 06/04/18 19:14 Summary of Procedures: None done Imaging: ITS Impressions Cervical Spine CT 06/04/18 18:46 CONCLUSION: Degenerative spondylosis and neural foraminal compromise bilateral C5-6. Head CT 06/04/18 18:46 CONCLUSION: Chronic changes right peritrigonal area and no acute hemorrhage. Head CTA 06/04/18 18:46 CONCLUSION: 1. Negative CTA Head. Lumbar Spine CT 06/04/18 18:46 CONCLUSION: Slight neural foraminal compromise bilateral L5-S1. Neck CTA 06/04/18 18:46 CONCLUSION: 1. Unremarkable study. Thoracic Spine CT 06/04/18 18:46 CONCLUSION: Hemangioma of T7 vertebrae multiple Schmorl nodes formation and no acute fracture. Pending Results: None - Medications Number of antipsychotic medications at discharge: 0 - Discharge Care Plan Goals to Promote Your Health: * To prevent worsening of your condition and complications * To maintain your health at the optimal level Directions to Meet Your Goals: Take your medications as prescribed Follow your dietary instruction Follow activity as directed Keep your appointments as scheduled Take your immunizations and boosters as scheduled If your symptoms worsen call your PCP, if no PCP go to Urgent Care Center or Emergency Room For 26/04 questions related to your inpatient stay or results of tests pending at discharge, please contact Dr. Lucas Alexis MD at Smoking is Dangerous to Your Health. Avoid second hand smoking
== END 2018-06-06 15:10 | disposition home or self-care (01) ==
LOC: NEPD 18:11 → NEDA 06-05 10:25 → H270 06-05 12:59
PROVIDERS: ADMIT Psychiatry & Neurology Psychiatry; ATTEND Psychiatry & Neurology Psychiatry